=== PATIENT | female | born 1960 | race Caucasian/White ===

== ENCOUNTER 2021-12-27 10:02 | Observation (INO) | payer SELFPAY ==
[2021-12-27] MEDS ORDERED: ACETAMINOPHEN INJECTION 100 ML IVPB ONE (10:27)
[2021-12-27] MEDS ORDERED: SODIUM CHLORIDE 0.9% 500 ML INFUS.BAG IV ONE ×2 (10:28→13:55)
[2021-12-27] MEDS ORDERED: ACETAMINOPHEN 1000 MG/100 ML BAG IVPB ONE (10:28)
[2021-12-27] MEDS ORDERED: CEFTRIAXONE 1,000 MG in DEXTROSE 5%-WATER - 50 ML IVPB ONE (10:33)
[2021-12-27] MEDS ORDERED: CEFTRIAXONE 1 GM/50 ML BAG ONE (10:37)
[2021-12-27 10:58] LABS: HEMATOCRIT 35.5 % (32.4-45.2); HEMOGLOBIN 12.6 GM/dL (10.7-15.3); MCH 30.4 pg (25.7-33.7); MCHC 35.5 g/dl (32.0-36.0); MEAN CELL VOLUME 85.5 fl (80-96); PLATELET COUNT 131 10^3/uL (134-434); RBC 4.15 M/mm3 (3.60-5.2); RDW 13.2 % (11.6-15.6); WHITE BLOOD COUNT 13.8 K/mm3 (4.0-10.0)
[2021-12-27 11:02] LABS: EPI CELLS 6 /uL (0-25.1); HYALINE CASTS 1 /uL (0-3.1); PH,URINE 7.5 (5.0-8.0); URINE APPEARANCE CLOUDY; URINE BACTERIA >9,000 /uL (0-1359); URINE BILIRUBIN NEGATIVE (NEGATIVE); URINE COLOR YELLOW; URINE GLUCOSE (UA) NEGATIVE (NEGATIVE); URINE KETONE NEGATIVE (NEGATIVE); URINE LEUK ESTERASE 2+ (NEGATIVE); URINE NITRITE POSITIVE (NEGATIVE); URINE PROTEIN 2+ (NEGATIVE); URINE RBC 32 /uL (0-23.9); URINE UROBILINOGEN 0.2 mg/dL (0.2-1.0); URINE WBC 1578 /uL (0-25.8)
[2021-12-27 11:11] LABS: VENOUS BASE EXCESS -0.3 mmol/L (-2-2); VENOUS O2 SATURATION 91.7 % (70-80); VENOUS PCO2 36.6 mmHg (38-52); VENOUS PH 7.428 (7.310-7.410)
[2021-12-27 11:20] LABS: ALBUMIN 3.8 g/dl (3.4-5.0); BLOOD UREA NITROGEN 10.8 mg/dL (7-18); MAGNESIUM 1.8 mg/dL (1.8-2.4)
[2021-12-27 11:23] LABS: CREATININE 0.7 mg/dL (0.55-1.3)
[2021-12-27 11:24] LABS: TOT PROT 7.8 g/dl (6.4-8.2)
[2021-12-27 11:30] LABS: ANISOCYTOSIS 1+; MACROCYTOSIS 0; PLATELET ESTIMATE DECREASED
[2021-12-27 11:34] LABS: LACTIC ACID 2.4 mmol/L (0.4-2.0)
[2021-12-27 13:44] LABS: LACTIC ACID 2.3 mmol/L (0.4-2.0)
[2021-12-27] MEDS: HEPARIN NA (PORCINE) 5,000 UNITS/ML 1ML VIAL SQ SCH ×2 (16:11→21:15)
[2021-12-27] MEDS: SODIUM CHLORIDE 1,000 ML IV SCH (16:15)
[2021-12-27] MEDS: INSULIN SLIDING SCALE (NOVOLOG) 1 VIAL SQ SCH (16:19)
[2021-12-27 17:26] VITALS: BMI 29.0
[2021-12-28] MEDS: SODIUM CHLORIDE 1,000 ML IV SCH ×2 (03:59→14:25)
[2021-12-28] MEDS: HEPARIN NA (PORCINE) 5,000 UNITS/ML 1ML VIAL SQ SCH ×3 (05:42→21:48)
[2021-12-28] MEDS ORDERED: ACETAMINOPHEN 325 MG TABLET (FP) PO PRN (05:56)
[2021-12-28] MEDS: INSULIN SLIDING SCALE (NOVOLOG) 1 VIAL SQ SCH ×4 (06:00→21:56)
[2021-12-28 08:02] LABS: BASO % 0.2 % (0-2.0); EOS % 0.1 % (0-4.5); HEMOGLOBIN 11.2 GM/dL (10.7-15.3); MCH 29.4 pg (25.7-33.7); MCHC 33.8 g/dl (32.0-36.0); MEAN PLT VOLUME 8.7 fl (7.5-11.1); NEUT % 73.7 % (42.8-82.8); PLATELET COUNT 137 10^3/uL (134-434); RDW 13.6 % (11.6-15.6); WHITE BLOOD COUNT 7.9 K/mm3 (4.0-10.0)
[2021-12-28 08:35] LABS: ALBUMIN 3.1 g/dl (3.4-5.0); BLOOD UREA NITROGEN 7.6 mg/dL (7-18)
[2021-12-28 08:38] LABS: CREATININE 0.5 mg/dL (0.55-1.3)
[2021-12-28 08:39] LABS: BILIRUBIN,TOTAL 0.7 mg/dL (0.2-1); TOT PROT 6.6 g/dl (6.4-8.2)
[2021-12-28] MEDS ORDERED: cefTRIAXone SODIUM 1 GM VIAL ONE (09:05)
[2021-12-28] MEDS ORDERED: DEXTROSE 5%-WATER - 50 ML IVPB ONE (09:06)
[2021-12-28] MEDS: CEFTRIAXONE 1 GM in DEXTROSE 5%-WATER - 50 ML IVPB SCH (09:17)
[2021-12-28] MEDS: ENALAPRIL MALEATE 10 MG TABLET PO SCH (09:17)
[2021-12-29] MEDS: HEPARIN NA (PORCINE) 5,000 UNITS/ML 1ML VIAL SQ SCH (06:15)
[2021-12-29] MEDS: INSULIN SLIDING SCALE (NOVOLOG) 1 VIAL SQ SCH ×2 (06:15→11:52)
[2021-12-29 09:00] LABS: BASO % 0.4 % (0-2.0); EOS % 0.9 % (0-4.5); HEMATOCRIT 33.8 % (32.4-45.2); HEMOGLOBIN 11.8 GM/dL (10.7-15.3); LYMPH % 35.2 % (8-40); MCH 30.1 pg (25.7-33.7); MCHC 34.9 g/dl (32.0-36.0); MEAN CELL VOLUME 86.2 fl (80-96); MEAN PLT VOLUME 8.7 fl (7.5-11.1); MONO % 10.5 % (3.8-10.2); PLATELET COUNT 142 10^3/uL (134-434); RBC 3.92 M/mm3 (3.60-5.2); RDW 13.4 % (11.6-15.6); WHITE BLOOD COUNT 5.1 K/mm3 (4.0-10.0)
[2021-12-29] MEDS ORDERED: cefTRIAXone SODIUM 1 GM VIAL ONE (09:02)
[2021-12-29] MEDS ORDERED: DEXTROSE 5%-WATER - 50 ML IVPB ONE (09:02)
[2021-12-29 09:16] LABS: BLOOD UREA NITROGEN 5.2 mg/dL (7-18); CREATININE 0.4 mg/dL (0.55-1.3)
[2021-12-29 09:17] LABS: ALBUMIN 3.1 g/dl (3.4-5.0)
[2021-12-29 09:18] LABS: BILIRUBIN,TOTAL 0.4 mg/dL (0.2-1); TOT PROT 6.9 g/dl (6.4-8.2)
[2021-12-29 09:22] LABS: CALCIUM 8.5 mg/dL (8.5-10.1); MAGNESIUM 1.9 mg/dL (1.8-2.4)
[2021-12-29] MEDS: CEFTRIAXONE 1 GM in DEXTROSE 5%-WATER - 50 ML IVPB SCH (09:36)
[2021-12-29] MEDS: ENALAPRIL MALEATE 10 MG TABLET PO SCH (09:37)
[2021-12-29 14:08] VITALS: BP 144/82; PULSE 69; TEMP 98.5
== END 2021-12-29 14:38 | disposition home or self-care (01) ==
LOC: JER 10:02 → JERBED 12:14 → UNDOADMOB 12:14 → INTOOBSV 13:56 → OBSVTOIN 13:56 → J7W 15:03 → JERBED 15:03 → J7W 12-28 07:49
PROVIDERS: ATTEND Nurse Practitioner Acute Care
PROC: 3E03329 Introduction of Other Anti-infective into Peripheral Vein, Percutaneous Approach (ICD-10-PCS; principal; 2021-12-28)
PROC: 3E033NZ Introduction of Analgesics, Hypnotics, Sedatives into Peripheral Vein, Percutaneous Approach (ICD-10-PCS; 2021-12-28)
PROC: 3E023GC Introduction of Other Therapeutic Substance into Muscle, Percutaneous Approach (ICD-10-PCS; 2021-12-28)
PROC: 3E013VG Introduction of Insulin into Subcutaneous Tissue, Percutaneous Approach (ICD-10-PCS; 2021-12-28)
PROC: 3E0337Z Introduction of Electrolytic and Water Balance Substance into Peripheral Vein, Percutaneous Approach (ICD-10-PCS; 2021-12-28)
DX: N39.0 Urinary tract infection, site not specified (principal); I10 Essential (primary) hypertension; E11.9 Type 2 diabetes mellitus without complications; R30.0 Dysuria; R51.9 Headache, unspecified; R50.9 Fever, unspecified; M54.9 Dorsalgia, unspecified; K59.00 Constipation, unspecified; R39.15 Urgency of urination; Z29.9 Encounter for prophylactic measures, unspecified
CPT/HCPCS: 36415; 71045-TC-FY; 74177-TC; 80053; 80061; 81003; 82803; 82962; 83036; 83605; 83735; 85025; 87040; 87086; 87186; 93005; 93010; 99285-25; C9803; G0378; J0131; J1644; Q9967; U0003; U0005